=== PATIENT | female | born 1960 | race Caucasian/White ===

== ENCOUNTER 2021-02-01 07:35 | Day surgery (SDC) | payer BC ==
[2021-01-29 12:37] LABS: BASOPHILS % (AUTO) 0.2 % (0.0-5.0); HEMATOCRIT 38.7 % (36-48); LYMPHOCYTES % (AUTO) 28.8 % (21.0-51.0); MEAN CORPUSCULAR HEMOGLOBIN 32.7 pg (27.0-33.0); MEAN CORPUSCULAR HGB CONC 32.8 g/dL (32.0-36.0); MEAN CORPUSCULAR VOLUME 99.7 fL (79-99); MONOCYTES % (AUTO) 9.8 % (3.0-13.0); NEUTROPHILS % (AUTO) 58.8 % (40.0-77.0); PLATELET COUNT (AUTO) 186 K/uL (130-400); RED BLOOD CELL COUNT(AUTO) 3.88 MIL/uL (4.00-5.50); RED CELL DISTRIBUTION WIDTH 12.6 % (11.0-15.5); WHITE BLOOD COUNT (AUTO) 4.6 K/uL (4.8-10.8)
[2021-01-29 12:43] LABS: CREATININE 0.8 mg/dL (0.5-1.5); POTASSIUM 4.4 mmol/L (3.5-5.1)
[2021-01-29 12:46] LABS: INR 1.1 (0.85-1.15); PROTHROMBIN TIME 11.9 SEC (9.6-11.6)
[2021-01-29 12:47] LABS: PARTIAL THROMBOPLASTIN TIME 27.5 SEC (26.3-35.5)
[2021-01-31 17:50] VITALS: BP 133/68
[2021-02-01] VITALS (16 sets, daily range): BP systolic 134–153; BP diastolic 67–87
[~2021-02-01] VITALS: Ht 167.6 cm; Wt 72.9 kg
[~2021-02-01 07:35] MED LIST: 0.9% NACL 250ML 250 ML IV SCH; CEVI30CA7 PO; CYAN-52 PO; CYCL30DR OU; FOLIC ACID PO; HYDR200T4 PO; NEBI5TAB8 PO; PHARMACY COMMUNICATION MISC SCH; SULF500T8 PO; THYR30TA2 PO; VANCOMYCIN KIT 1 GM/250 ML IV.KIT IV SCH; [UNRECOGNIZED DRUG - OTHER] NASAL
[2021-02-01] MEDS ORDERED: LACTATED RINGERS 1000ML 1,000 ML IV ONE (08:14)
[2021-02-01] MEDS: CEFAZOLIN SODIUM 1 GM VIAL IVP SCH ×2 (08:35→10:30)
[2021-02-01] MEDS ORDERED: ONDANSETRON 4MG INJ ONE ×2 (08:47→13:44)
[2021-02-01] MEDS ORDERED: DEXAMETHASONE SOD PHOSPHATE 10MG/ML 1ML VIAL ONE (08:47)
[2021-02-01] MEDS ORDERED: LIDOCAINE PF 100MG/5ML (2%) SYRINGE 5ML ONE (08:47)
[2021-02-01] MEDS ORDERED: SUCCINYLCHOLINE CHLORIDE 20 MG/ML 10 ML VIAL ONE (08:47)
[2021-02-01] MEDS ORDERED: PROPOFOL 10 MG/ML 20ML VIAL IV ONE ×2 (08:47→10:42)
[2021-02-01] MEDS ORDERED: FENTANYL CITRATE PF 50 MCG/1 ML 5ML AMP IV ONE (08:48)
[2021-02-01] MEDS ORDERED: MIDAZOLAM HCL 1 MG/ML 2ML VIAL ONE (08:48)
[2021-02-01] MEDS ORDERED: GLYCOPYRROLATE 1 MG/5 ML SYRINGE ONE (08:48)
[2021-02-01] MEDS ORDERED: ROCURONIUM 10MG/1ML SYR 10 MG/ML ML ONE (08:48)
[2021-02-01] MEDS ORDERED: NEOSTIGMINE 5MG/5ML SYR IV ONE (08:48)
[2021-02-01] MEDS ORDERED: FENTANYL CITRATE PF 50 MCG/1 ML 2ML VIAL ONE (12:32)
[2021-02-01] MEDS ORDERED: ACETAMINOPHEN 500 MG TABLET ONE (14:52)
[2021-02-01] MEDS ORDERED: KETOROLAC 30MG VIAL (30MG/ML) ONE (14:54)
== END 2021-02-01 15:22 | disposition home or self-care (01) ==
LOC: DAH 07:35
PROVIDERS: ATTEND Otolaryngology
DX: E04.2 Nontoxic multinodular goiter (principal); Z79.01 Long term (current) use of anticoagulants
CPT/HCPCS: 36415; 60220; 71045; 80048; 85025; 85610; 85730; 87426; 93005; A4215; A4221; A4222; A4223; A4344; A4649 ×2; A4663; A4930 ×2; A6260; G0168; J0330; J0690; J1100; J1885; J2001; J2250; J2405 ×2; J2704 ×2; J2710; J3010 ×2; J3490; J7120; J3370